=== PATIENT | female | born 1975 | race Caucasian/White ===

== ENCOUNTER 2016-05-22 10:00 | Emergency (ER) | payer MEDICAID ==
[~2016-05-22] VITALS: Wt 113.0 kg
[~2016-05-22 10:00] MED LIST: ALBU8.5H5 INH; AUG875 PO; BENZ100C70 PO; PREN-39 PO; PSEU120T51 PO
[2016-05-22] MEDS ORDERED: ALBUTEROL 0.5% (NEB) 2.5 MG/0.5 ML AMP HHN STA (11:21)
[2016-05-22] MEDS ORDERED: METHYLPREDNISOLONE 125 MG INJ IM ONE (11:30)
--- NOTE | 2016-05-22 11:38 | RADRPT ---
PROCEDURE: XR Chest. CLINICAL INDICATION: Cough/shortness of breath TECHNIQUE: Chest AP portable. COMPARISON: 05/07/2015 FINDINGS: The mediastinal structures are unremarkable. The heart is normal in size and configuration. The pu lmonary vascularity is normal. The lung haynes are unremarkable. No consolidation is identified. The pleural spaces are unremarkable. The axial skeleton is unremarkable. IMPRESSION: No active intrathoracic disease. RPTAT: [facility] .Abhinav Wu MD, MD Date Time Electronically viewed and signed by .Abhinav Wu MD, on 05/22/2016 11:37 .B/
[2016-05-22] MEDS ORDERED: DIPHENHYDRAMINE 25 MG CAP PO ONE (12:00)
[2016-05-22] MEDS ORDERED: DIPHENHYDRAMINE 50 MG INJ IV ONE (12:30)
[2016-05-22] MEDS ORDERED: ALBU18HF INHALATION (12:51)
[2016-05-22] MEDS ORDERED: BEN50 PO (12:51)
[2016-05-22] MEDS ORDERED: PRED20TA PO (12:51)
[2016-05-22] MEDS ORDERED: AZIT250T94 PO (12:52)
--- NOTE | 2016-05-22 12:56 | ERD ---
ER Documentation Chief Complaint Date/Time DATE: 05/22/16 TIME: 12:54 Chief Complaint COUGH X3 WEEKS, SOB HPI This 5-year-old female presents with cough for last 3 weeks. She has productive sputum. She also has possible wheezing. She denies fevers, chest pain, vomiting, abdominal pain. ROS All systems reviewed and are negative except as per history of present illness. Medications Home Meds Active Scripts Azithromycin* (Zithromax*) 250 Mg Tablet, 250 MG PO .ZPACK DIRECTED, #6 TAB TAKE 500 MG (2 TABS) THE FIRST DAY THEN 250 MG (1 TAB) DAYS 2-5 Prov:RAFI HUBER MD 05/22/16 Diphenhydramine Hcl* (Benadryl*) 50 Mg Cap, 50 MG PO Q6 Y for rash / itch, #30 CAP Prov:RAFI HUBER MD 05/22/16 Albuterol Sulfate* (Ventolin HFA*) 18 Gm Hfa.aer.ad, 2 PUFF INHALATION Q4H, #1 INHALER Prov:RAFI HUBER MD 05/22/16 Prednisone* (Prednisone*) 20 Mg Tab, 60 MG PO DAILY for 4 Days, TAB Prov:RAFI HUBER MD 05/22/16 Pseudoephedrine Hcl (Sudafed 12 Hour) 120 Mg Tablet.sa, 120 MG PO BID, #20 Prov:JALEN GOYAL NP 05/15/15 Amoxicillin-Clavulanate K* (Augmentin*) 875 Mg Tab, 875 MG PO BID, #20 TAB Prov:JALEN GOYAL NP 05/15/15 Albuterol Sulfate* (Albuterol Sulfate* HFA) 8.5 Gm Hfa.aer.ad, 1-2 PUFF INH Q4 Y for SHORTNESS OF BREATH, #1 EA Prov:LETTY CAZARES PA-C 05/07/15 Benzonatate* (Tessalon Perle*) 100 Mg Capsule, 100 MG PO Q8H Y for COUGH, #30 CAP Prov:LETTY CAZARES PA-C 05/07/15 Reported Medications Vits W-Ca,Fe,Fa(<1MG) ( Vitamins) 1 Tab Tablet, 1 TAB PO DAILY 12/25/14 Allergies Allergies: Coded Allergies: methylprednisolone (Verified Allergy, Intermediate, Itching, Rash, 05/22/16) PMhx/Soc History of Surgery: No Anesthesia Reaction: No Hx Neurological Disorder: No Hx Respiratory Disorders: No Hx Cardiac Disorders: Yes (htn, hyperlipids) Hx Psychiatric Problems: No Hx Miscellaneous Medical Probl: No Hx Alcohol Use: No Hx Substance Use: No Hx Tobacco Use: No Smoking Status: Never smoker Physical Exam Vitals Vital Signs Date Time Temp Pulse Resp B/P Pulse Ox O2 Delivery O2 Flow Rate FiO2 05/22/16 11:53 77 22 99 21 05/22/16 10:04 97.1 75 18 125/60 98 Physical Exam Const: [] Alert, [id number], audible wheezing. Head: Atraumatic Eyes: Normal Conjunctiva ENT: Normal External Ears, Nose and Mouth. Neck: Full range of motion..~ No meningismus. Resp: Clear to auscultation bilaterally. Diffuse wheezing without rales or retractions appreciated. Cardio: Regular rate and rhythm, no murmurs Abd: Soft, non tender, non distended. Normal bowel sounds Skin: No petechiae or rashes Back: No midline or flank tenderness Ext: No cyanosis, or edema Neur: Awake and alert Psych: Normal Mood and Affect Results 24 hrs Current Medications Medications (Trade) Dose Ordered Sig/Linda Route PRN Reason Start Time Stop Time Status Last Admin Dose Admin Methylprednisolone Sodium Succinate (Solu-Medrol) 125 mg ONCE ONCE IM 05/22/16 11:30 05/22/16 11:31 DC 05/22/16 11:35 Albuterol (Proventil 0.5% (Neb)) 5 mg ONCE STAT HHN 05/22/16 11:21 05/22/16 11:23 DC 05/22/16 11:53 Diphenhydramine HCl (Benadryl) 25 mg ONCE ONCE PO 05/22/16 12:00 05/22/16 12:01 DC 05/22/16 12:00 Diphenhydramine HCl (Benadryl) 25 mg ONCE ONCE IV 05/22/16 12:30 05/22/16 12:31 DC 05/22/16 12:33 Procedures/MDM Chest X-ray 1V Interpreted by me: Soft Tissue: No acute abnormalities Bones: No acute abnormalities Mediastinum/Cardiac Silhouette/Lungs: [No acute abnormalities]. Impression- normal 1 view chest x-ray Patient was given albuterol 5 mg hand-held nebulizer Solu-Medrol 125 mg IM. Patient complained of itchy rash. Observation and treatment. Patient was given initially Benadryl 25 mg of mouth and then Benadryl 25 mg IV for persistent itchy rash. Patient had improvement in wheezing with treatment however. Patient has no complaints of chest pain, vomiting, abdominal pain, there is no evidence of hypoxemia or tachycardia. Patient likely has URI with wheezing and a rash of uncertain etiology, possibly allergy although allergy to Solu-Medrol not likely. Patient shows no evidence of anaphylaxis respiratory distress. She will be treated course of Benadryl at home a short course of prednisone and Ventolin and Zithromax at home and instructed to call the primary doctor this week. She should otherwise return to the ER for new or worsening symptoms. Signs and symptoms are not consistent with acute coronary syndrome, pulmonary embolism, pneumonia, additional causes of wheezing. Departure Diagnosis: Primary Impression: URI, acute Additional Impression: Reactive airway disease Asthma severity: unspecified severity Asthma complication type: uncomplicated Qualified Code: J45.909 - Reactive airway disease, unspecified asthma severity, uncomplicated Condition: Stable Patient Instructions: Bronchitis With Wheezing (Adult) Additional Instructions: Cheque otro vez con vazquez doctor primario en el proximo armas or regresa para mas o nueva simptomas. RAFI HUBER MD May 22, 2016 12:56
[2016-05-22 13:11] VITALS: BP 190/89; PULSE 99; RESP 18; TEMP 98.3
== END 2016-05-22 13:37 | disposition home or self-care (01) ==
LOC: FTE 10:00
DX: J06.9 Acute upper respiratory infection, unspecified (principal); J45.909 Unspecified asthma, uncomplicated; I10 Essential (primary) hypertension
CPT/HCPCS: 71010; 94664; 96372; 96374; J1200; J2930; Z7502; Z7610

== ENCOUNTER 2016-06-03 11:42 | Emergency (ER) | payer MEDICAID ==
[~2016-06-03] VITALS: Ht 160 cm; Wt 112.0 kg
[~2016-06-03 11:42] MED LIST changes: +ALBU18HF INHALATION; +AZIT250T94 PO; +BEN50 PO; +PRED20TA PO
[2016-06-03 11:45] VITALS: Ht 160 cm; Wt 112.0 kg
[2016-06-03] MEDS ORDERED: ONDANSETRON (ODT) 4 MG TAB ODT STA (12:31)
[2016-06-03] MEDS ORDERED: OSLT75C PO (12:36)
[2016-06-03] MEDS ORDERED: GUAI10LI PO (12:36)
[2016-06-03] MEDS ORDERED: ONDA4TAB14 PO (12:36)
--- NOTE | 2016-06-03 12:41 | ERD ---
ER Documentation Chief Complaint Date/Time DATE: 06/03/16 TIME: 12:38 Chief Complaint fever,cough, body aches since last night HPI Patient is a 41-year-old female who presents with fever, cough, headache, body aches, chills, and nausea that began yesterday. Pain is 8 out of 10. She took Tylenol about 11 AM this morning. She feels nauseous but no vomiting. Denies urinary symptoms. ROS All systems reviewed and are negative except as per history of present illness. Medications Home Meds Active Scripts Guaifenesin/Codeine Phosphate (GUAIFENESIN-CODEINE SYRUP) 10 Ml Liquid, 10 ML PO QHS, #4 OZ Prov:DANK HARRISON PA-C 06/03/16 Ondansetron (Ondansetron Odt) 4 Mg Tab.rapdis, 4 MG PO Q6H Y for NAUSEA AND/OR VOMITING, #20 TAB Prov:DANK HARRISON PA-C 06/03/16 Oseltamivir Phosphate* (Tamiflu*) 75 Mg Capsule, 75 MG PO BID for 5 Days, CAP Prov:DANK HARRISON PA-C 06/03/16 Azithromycin* (Zithromax*) 250 Mg Tablet, 250 MG PO .ZPACK DIRECTED, #6 TAB TAKE 500 MG (2 TABS) THE FIRST DAY THEN 250 MG (1 TAB) DAYS 2-5 Prov:RAFI HUBER MD 05/22/16 Diphenhydramine Hcl* (Benadryl*) 50 Mg Cap, 50 MG PO Q6 Y for rash / itch, #30 CAP Prov:RAFI HUBER MD 05/22/16 Albuterol Sulfate* (Ventolin HFA*) 18 Gm Hfa.aer.ad, 2 PUFF INHALATION Q4H, #1 INHALER Prov:RAFI HUBER MD 05/22/16 Prednisone* (Prednisone*) 20 Mg Tab, 60 MG PO DAILY for 4 Days, TAB Prov:RAFI HUBER MD 05/22/16 Pseudoephedrine Hcl (Sudafed 12 Hour) 120 Mg Tablet.sa, 120 MG PO BID, #20 Prov:JALEN GOYAL NP 05/15/15 Amoxicillin-Clavulanate K* (Augmentin*) 875 Mg Tab, 875 MG PO BID, #20 TAB Prov:JALEN GOYAL NP 05/15/15 Albuterol Sulfate* (Albuterol Sulfate* HFA) 8.5 Gm Hfa.aer.ad, 1-2 PUFF INH Q4 Y for SHORTNESS OF BREATH, #1 EA Prov:LETTY CAZARES PA-C 05/07/15 Benzonatate* (Tessalon Perle*) 100 Mg Capsule, 100 MG PO Q8H Y for COUGH, #30 CAP Prov:LETTY CAZARES PA-C 05/07/15 Reported Medications Vits W-Ca,Fe,Fa(<1MG) ( Vitamins) 1 Tab Tablet, 1 TAB PO DAILY 12/25/14 Allergies Allergies: Coded Allergies: methylprednisolone (Verified Allergy, Intermediate, Itching, Rash, 05/22/16) PMhx/Soc History of Surgery: No Anesthesia Reaction: No Hx Neurological Disorder: No Hx Respiratory Disorders: No Hx Cardiac Disorders: Yes (htn, hyperlipids) Hx Psychiatric Problems: No Hx Miscellaneous Medical Probl: No Hx Alcohol Use: No Hx Substance Use: No Hx Tobacco Use: No FmHx Family History: No diabetes Physical Exam Vitals Vital Signs Date Time Temp Pulse Resp B/P Pulse Ox O2 Delivery O2 Flow Rate FiO2 06/03/16 11:45 102.3 109 20 142/83 99 Physical Exam General: well developed, well nourished, alert, nontoxic, no distress Head: normocephalic, atraumatic Neck: Supple, nontender, no lymphadenopathy, no midline tenderness Ears: no tenderness over mastoids bilaterally, TMs nonerythematous, no exudates in canal Oropharynx: no tonsilar erythema or edema, uvula midline, no exudates, no kissing tonsils, no drooling Respiratory: Clear to auscaultation bilaterally, speaks in full sentences, no use of accesory muscles or labored breathing, no rales, ronchi, or wheezing Cardiovascular: RRR, No murmurs GI: soft, non tender, non distended, negative murphys sign, negative mcburneys point tenderness, no rebound or guarding Results 24 hrs Current Medications Medications (Trade) Dose Ordered Sig/Linda Route PRN Reason Start Time Stop Time Status Last Admin Dose Admin Ibuprofen (Motrin) 800 mg ONCE ONCE PO 06/03/16 13:00 06/03/16 13:01 Ondansetron HCl (Zofran Odt) 4 mg ONCE STAT ODT 06/03/16 12:31 06/03/16 12:32 DC Procedures/MDM 41-year-old female presents with fever 102.3 documented in triage however I rechecked the temperature in examination room is 98.6. She took Tylenol before arriving to the emergency room. She was given Motrin and Zofran here before being discharged. She is flulike symptoms that began yesterday and therefore she is a candidate for Tamiflu. She is given a prescription for Tamiflu, Zofran , and cough syrup.Recommended this patient follow up with her primary care doctor within 48 hours or return to the emergency room for any worsening of symptoms. However this time I do believe there is suitable for outpatient management. I answered all their questions and they agreed with the plan and were discharged home. Departure Diagnosis: Primary Impression: Influenza-like symptoms Condition: Stable Patient Instructions: Influenza (Adult) Additional Instructions: Llame al doctor JOHNNA y sofia rohit PRASHANT PARA DENTRO DE 1-2 STARKEY.Dgale a la secretaria que nosotros le instruimos hacer esta prashant.Avise o llame si vazquez condicin se empeora antes de la prashant. Regresa aqui si peor o no mejor. DANK HARRISON PA-C Jun 03, 2016 12:41
[2016-06-03] MEDS ORDERED: IBUPROFEN 800 MG TAB PO ONE (13:00)
[2016-06-03 13:28] VITALS: BP 140/74; PULSE 89; RESP 18; TEMP 100.1
== END 2016-06-03 13:30 | disposition home or self-care (01) ==
LOC: FTE 11:42
DX: R50.9 Fever, unspecified (principal); R11.0 Nausea; R05 Cough; R51 Headache; I10 Essential (primary) hypertension
CPT/HCPCS: Z7502; Z7610; 99284

== ENCOUNTER 2017-10-24 21:17 | Emergency (ER) | END 2017-10-25 01:49 | disposition home or self-care (01) ==

== ENCOUNTER 2017-10-30 12:40 | Emergency (ER) | END 2017-10-30 12:54 | disposition home or self-care (01) ==

== ENCOUNTER 2018-03-30 16:26 | Emergency (ER) | END 2018-03-30 19:42 | disposition home or self-care (01) ==